=== PATIENT | female | born 1965 ===

== ENCOUNTER 2020-07-18 08:56 | Outpatient (CLI) | payer OTHER, SELFPAY ==
--- NOTE | ~2020-07-18 | PE_ITS ---
EXAMINATION: PET skull to mid thigh DATE: 07/18/2020 10:57 INDICATION: Malignant neoplasm of the hard palate. TECHNIQUE: Blood glucose level was 95 mg/dL. 9.789 mCi of 18-fluorodeoxyglucose (18-FDG) was administ ered i.v. Low dose computed tomography (CT) images were acquired from the base of the brain to the pr oximal thighs for attenuation correction and anatomic localization. Automated exposure control was em ployed. Dose-length product (DLP) was 501 mGy-cm. Positron emission tomography (PET) images were acqu ired in the same distribution. COMPARISON: None FINDINGS: Head/neck: There is increased activity in the oral cavity, oropharynx, glottis, sublingual and subman dibular glands, and scalene muscles without CT correlate, likely physiologic. There are no pathologic ally enlarged lymph nodes. Chest: The lungs demonstrate mild atelectasis. No pleural effusion. The heart size is normal. There a re coronary artery calcifications. No pericardial effusion. There is increased activity in normal-siz ed bilateral axillary lymph nodes. There is mild thoracic spondylosis. Abdomen/pelvis/proximal thighs: The liver, spleen, gallbladder, pancreas, and adrenal glands are norm al., And kidneys are normal. There are no dilated loops of bowel. There is a 7.1 cm cystic mass in le ft adnexa without increased activity. There is increased activity normal-sized bilateral external damien ac lymph nodes. There is no free intraperitoneal fluid. There is mild lumbar spondylosis. IMPRESSION: 1. Increased activity in normal-sized bilateral axillary and external iliac lymph nodes, likely react debbie. 2. 7.1 cm cystic mass in left adnexa without increased activity, likely benign. Pelvis ultrasound is recommended. Reviewed, dictated and finalized at location A. N ELEVATOR CLERK IMPRESSION: 1. Increased activity in normal-sized bilateral axillary and external iliac lym ph nodes, likely reactive. 2. 7.1 cm cystic mass in left adnexa without increased activity, likely benign. Pelvis ultrasound is recommended.
[2020-07-18 09:30] LABS: Glucose Point of Care 95 (65-105)
== END 2020-07-18 08:57 | disposition home or self-care (01) ==
PROVIDERS: Visit Provider Radiology Radiation Oncology
DX: C05.0 Malignant neoplasm of hard palate (principal); R19.09 Other intra-abdominal and pelvic swelling, mass and lump
CPT/HCPCS: 78815; 82948; A9552